=== PATIENT | female | born 1965 | race Caucasian/White ===

== ENCOUNTER → 2019-04-03 | Outpatient (REF) | payer OTHER ==
[~2019-04-03] MED LIST: BENI1TAB3 PO; BENICAR PO; CIPR-249 PO; DIVA50TAEC PO; FLAG500T PO; SUDA1TAB3 PO; TYLE325T5 PO; XYZA5TAB2 PO; [UNRECOGNIZED DRUG - OTHER]
== END ==
LOC: M LAB REF 12:02
PROVIDERS: ATTEND Physician Assistant
DX: R30.0 Dysuria (principal)